=== PATIENT | female | born 1950 | race Caucasian/White ===

== ENCOUNTER 2017-01-22 09:00 | Emergency (ER) | payer OTHER ==
[2017-01-22 09:04] VITALS: BP 154/71; PULSE 61; TEMP 97.8; BMI 43.0
[2017-01-22] MEDS ORDERED: CEPHALEXIN MONOHYDRATE 500 MG CAPSULE (UD) PO ONE (10:19)
[2017-01-22] MEDS ORDERED: CEPHALEXIN MONOHYDRATE 500 MG CAPSULE (UD) ONE (10:21)
--- NOTE | 2017-01-22 10:29 | PDOC ---
History of Present Illness - General Chief Complaint: Edema Stated Complaint: LT EAR SWELLING/ INFECTION Time Seen by Provider: 01/22/17 10:14 History Source: Patient Exam Limitations: No Limitations - History of Present Illness Initial Comments: 01/22/17 10:29 66 yr female with swelling, redness to left earlobe started yesterday. pt denies pain or itching, no trauma. Past History - Past Medical History Allergies/Adverse Reactions: Allergies Allergy/AdvReac Type Severity Reaction Status Date / Time No Known Drug Allergies Allergy Verified 01/22/17 09:04 Home Medications: Ambulatory Orders Aspirin [ASA -] 81 mg PO DAILY 09/30/12 Metoprolol Succinate [Toprol XL -] 25 mg PO HS 09/30/12 Atorvastatin Ca [Lipitor] 40 mg PO HS 10/03/12 Cephalexin [Keflex] 250 mg PO QID #28 capsule 01/22/17 Mupirocin Ointment [Bactroban] 1 applic TP BID #1 tube 01/22/17 Anemia: Yes Asthma: Yes Cancer: No Cardiac Disorders: No CVA: No COPD: No CHF: No Dementia: No Diabetes: No GI Disorders: No Disorders: No HTN: Yes Hypercholesterolemia: Yes Liver Disease: No Seizures: No Thyroid Disease: No - Surgical History Abdominal Surgery: No Appendectomy: No Cardiac Surgery: No Cholecystectomy: Yes Lung Surgery: No Neurologic Surgery: No Orthopedic Surgery: No - Psycho/Social/Smoking Cessation Hx Anxiety: No Suicidal Ideation: No Smoking History: Never smoked Have you smoked in the past 12 months: No Number of Cigarettes Smoked Daily: 0 Hx Alcohol Use: No Drug/Substance Use Hx: No Substance Use Type: None Hx Substance Use Treatment: No Review of Systems - Review of Systems Able to Perform ROS?: Yes Is the patient limited Kiswahili proficient: Yes Constitutional: No: Symptoms Reported HEENTM: No: Symptoms Reported Integumentary: Yes: Symptoms Reported, See HPI *Physical Exam - Vital Signs Last Vital Signs Temp Pulse Resp BP Pulse Ox 97.8 F 61 16 154/71 96 01/22/17 09:02 01/22/17 09:02 01/22/17 09:02 01/22/17 09:02 01/22/17 09:02 - Physical Exam General Appearance: Yes: Nourished, Appropriately Dressed HEENT: positive: EOMI, ADILENE, Normal ENT Inspection, TMs Normal, Pharynx Normal Respiratory/Chest: positive: Lungs Clear, Normal Breath Sounds Cardiovascular: positive: Regular Rhythm, Regular Rate Gastrointestinal/Abdominal: positive: Normal Bowel Sounds, Soft Extremity: positive: Normal Capillary Refill, Normal Inspection, Normal Range of Motion Integumentary: positive: Normal Color, Dry, Warm, Other (left earlobe and pinna with erythema, oozing vesicular lesion, swelling, non tender, swelling post auricular node) Neurologic: positive: Fully Oriented, Alert, Normal Mood/Affect, Normal Response , Motor Strength 5/5 Medical Decision Making - Medical Decision Making 01/22/17 10:31 cc: left earlobe and villaseñor with redness, swelling and drainage non tender no itching will treat for possible early cellulitus strict follow up in 48hrs *DC/Admit/Observation/Transfer Diagnosis at time of Disposition: Cellulitis Qualifiers: Site of cellulitis: other site Qualified Code(s): L03.818 - Cellulitis of other sites - Discharge Dispostion Disposition: HOME Condition at time of disposition: Good - Prescriptions Prescriptions: Mupirocin Ointment [Bactroban] 1 applic TP BID #1 tube Cephalexin [Keflex] 250 mg PO QID #28 capsule - Patient Instructions Additional Instructions: follow up in 48hrs with or the ER for follow up visit return sooner if any fever, worsening symptoms apply the ointment twice a day take the antibiotic as prescribed no rubbing alcohol or peroxide, keep dry
== END 2017-01-22 10:41 | disposition home or self-care (01) ==
LOC: JERFT 09:00
DX: H60.12 Cellulitis of left external ear (principal); I10 Essential (primary) hypertension; E78.00 Pure hypercholesterolemia, unspecified; J45.909 Unspecified asthma, uncomplicated; D64.9 Anemia, unspecified
CPT/HCPCS: 99281-25

== ENCOUNTER 2017-09-29 10:15 | Emergency (ER) | payer OTHER ==
[2017-09-29 10:37] VITALS: TEMP 97.6; BMI 43.0
--- NOTE | 2017-09-29 10:46 | PDOC ---
History of Present Illness - General Chief Complaint: Pain Stated Complaint: Pain Time Seen by Provider: 09/29/17 10:29 History Source: Patient Exam Limitations: No Limitations - History of Present Illness Initial Comments: 09/29/17 10:37 Patient is a [67-year-old morbidly obese female, history of hypertension and high cholesterol presents with right posterior lower back pain which started yesterday. Patient denies any trauma, denies lifting anything heavy, reports the pain started while she was sitting still. Pain is worse with movement. Patient denies any nausea vomiting or diarrhea, no chest pain or shortness of breath, no fever. No history of orthopedic pain or kidney stones. Patient denies any urinary symptoms, no footdrop, no saddle anesthesia, no neurosensory deficits. ] Allergies: No known allergies Medications: [ASA, Lipitor, Toprol. ] Family History: Non-contributory Social History: Denies smoking, alcohol use, or IVDU Vital signs on arrival are [notable for pulse of 96.] Review of Systems GENERAL/CONSTITUTIONAL: [No fever or chills. No weakness. No weight change.] HEAD, EYES, EARS, NOSE AND THROAT: [No change in vision. No ear pain or discharge. No sore throat. ] CARDIOVASCULAR: [No chest pain or shortness of breath.] RESPIRATORY: [No cough, wheezing, or hemoptysis.] GASTROINTESTINAL: [No nausea, vomiting, diarrhea or constipation. No rectal bleeding.] GENITOURINARY: [No dysuria, frequency, or change in urination.] MUSCULOSKELETAL: [No joint or muscle swelling or pain. No neck pain. Right posterior back pain. ] SKIN : [No rash or easy bruising.] NEUROLOGIC: [No headache, vertigo, loss of consciousness, or loss of sensation.] PSYCHIATRIC: [No depression or anxiety.] ENDOCRINE: [No increased thirst. No abnormal weight change.] HEMATOLOGIC/LYMPHATIC: [No anemia, easy bleeding, or history of blood clots.] ALLERGIC/IMMUNOLOGIC: [No hives or skin allergy. No latex allergy.] Physical Exam: GENERAL: [The patient is awake, alert, and fully oriented, in no acute distress. ] EYES: [Pupils equal, round and reactive to light, extraocular movements intact, sclera anicteric, conjunctiva clear.] ENT: [Ears normal, nares patent, oropharynx clear without exudates. Moist mucous membranes. No uvula deviation] NECK: [Normal range of motion, supple without lymphadenopathy, JVD, or masses.] LUNGS: [Breath sounds equal, clear to auscultation bilaterally. No wheezes, and no crackles.] HEART: [Regular rate and rhythm, normal S1 and S2 without murmur, rub or gallop. ] ABDOMEN: [Soft, nontender, normoactive bowel sounds. No guarding, no rebound. No masses. No bruising or abrasions] MUSCULOSKELETAL: [Normal range of motion, no edema. No clubbing or cyanosis. No cords, erythema, or tenderness. No CVA Tenderness with fist palpation. Pelvis stable. ] RECTAL : Good rectal tone. NEUROLOGICAL: [Cranial nerves II through XII grossly intact. Normal speech, normal gait.] SKIN: [Warm, Dry, normal turgor, no rashes or lesions noted.] 09/29/17 15:28 Past History - Past Medical History Allergies/Adverse Reactions: Allergies Allergy/AdvReac Type Severity Reaction Status Date / Time No Known Drug Allergies Allergy Verified 01/22/17 09:04 Home Medications: Ambulatory Orders Aspirin [ASA -] 81 mg PO DAILY 09/30/12 Metoprolol Succinate [Toprol XL -] 25 mg PO HS 09/30/12 Atorvastatin Ca [Lipitor] 40 mg PO HS 10/03/12 Diazepam [Valium] 5 mg PO Q8H #9 tablet MDD 3 09/29/17 Tramadol HCl 50 mg PO TID #12 tablet [facility] 3 09/29/17 Anemia: Yes Asthma: Yes Cancer: No Cardiac Disorders: No CVA: No COPD: No CHF: No DVT: No Dementia: No Diabetes: No GI Disorders: No Disorders: No HTN: Yes Hypercholesterolemia: Yes Liver Disease: No Seizures: No Thyroid Disease: No - Surgical History Abdominal Surgery: No Appendectomy: No Cardiac Surgery: No Cholecystectomy: Yes Lung Surgery: No Neurologic Surgery: No Orthopedic Surgery: No - Suicide/Smoking/Psychosocial Hx Smoking History: Never smoked Have you smoked in the past 12 months: No Number of Cigarettes Smoked Daily: 0 Information on smoking cessation initiated: No Hx Alcohol Use: No Drug/Substance Use Hx: No Substance Use Type: None Hx Substance Use Treatment: No *Physical Exam - Vital Signs Last Vital Signs Temp Pulse Resp BP Pulse Ox 97.6 F 70 24 163/80 97 09/29/17 10:23 09/29/17 10:23 09/29/17 10:23 09/29/17 10:23 09/29/17 10:23 ED Treatment Course - LABORATORY CBC & Chemistry Diagram: 09/29/17 10:40 09/29/17 10:40 - RADIOLOGY Radiology Studies Ordered: Category Date Time Status CHEST PA & LAT [RAD] Stat Radiology 09/29/17 10:35 Ordered Medical Decision Making - Medical Decision Making 09/29/17 10:46 A/P: Patient with posterior right back pain, pain at rest but worse with movement. Denies any chest pain or shortness of breath, no upper respiratory symptoms. Plan: EKG Chest x-ray CBC, CMP saline lock CT scan, spinal rule out kidney stones 09/29/17 14:19 Laboratory Results - last 24 hr 09/29/17 09/29/17 09/29/17 10:40 10:40 10:45 WBC 10.7 H RBC 4.80 Hgb 12.5 Hct 39.1 MCV 81.5 MCH 26.0 MCHC 31.9 L RDW 15.5 Plt Count 219 MPV 9.4 Neutrophils % 77.7 Lymphocytes % 16.3 D Monocytes % 4.2 Eosinophils % 1.3 Basophils % 0.5 Sodium 143 Potassium 4.4 Chloride 105 Carbon Dioxide 33 H Anion Gap 5 L BUN 20 H Creatinine 0.6 Creat Clearance w eGFR > 60 Random Glucose 143 H Calcium 8.1 L Total Bilirubin 0.6 AST 21 D ALT 29 Alkaline Phosphatase 140 H Total Protein 6.3 L Albumin 3.1 L Urine Color Yellow Urine Appearance Slcloudy Urine pH 5.0 Ur Specific [place] 1.021 Urine Protein 2+ H Urine Glucose (UA) Negative Urine Ketones Negative Urine Blood Negative Urine Nitrite Negative Urine Bilirubin Negative Urine Urobilinogen Negative Urine WBC (Auto) 11 Urine RBC (Auto) 2 Ur Epithelial Cells Moderate Urine Bacteria Rare Hyaline Casts [address] scan still pending, labs with mildly elevated WBC with no shift. Saline ordered, and will give one Percocet with Zofran . 09/29/17 15:29 CT scan with bilateral parapelvic renal cysts. No acute pathology. Patient states some relief after Percocet and Zofran will discharge patient home, musculoskeletal pain, on tramadol and Valium encourage patient to stay with family members medication may cause dizziness. She verbalized understanding encouraged to follow up with PMD on Sunday. I discussed the physical exam findings, ancillary test results and final diagnoses with the patient. I answered all of the patient's questions. The patient was satisfied with the care received and felt comfortable with the discharge plan and treatment plan. The patient will call to arrange follow-up and will return to the Emergency Department with any new, persistent or worsening symptoms. 09/29/17 15:30 *DC/Admit/Observation/Transfer Diagnosis at time of Disposition: Musculoskeletal pain Back pain Qualifiers: Back pain location: low back pain Chronicity: acute Back pain laterality: right Sciatica presence: without sciatica Qualified Code(s): M54.5 - Low back pain - Discharge Dispostion Disposition: HOME Condition at time of disposition: Stable Admit: No - Prescriptions Prescriptions: Diazepam [Valium] 5 mg PO Q8H #9 tablet MDD 3 Tramadol HCl 50 mg PO TID #12 tablet MDD 3 - Referrals Referrals: Rizwana Pathak MD [Primary Care Provider] - - Patient Instructions Printed Discharge Instructions: Back Pain (Alternative Therapy), Low Back Pain Additional Instructions: 1. Please return to the emergency department with any numbness, tingling, weakness, numbness or tingling to groin or legs, or loss of bowel or bladder function. 2. Use pain medication as ordered. Please be careful, may cause dizziness. 3. Please is to followup in the office of Dr. Paintnig for evaluation within a week if no improvement. 4. Ice to lower basck, 20 min on 20 min off. 5. Refrain from lifting anything above 10 pounds, until pain resolved. - Post Discharge Activity Forms/Work/School Notes: Back to Work
[2017-09-29 10:50] LABS: BASOPHIL 0.5 % (0-2.0); EOSINOPHIL 1.3 % (0-4.5); MCHC 31.9 g/dl (32.0-36.0); MEAN CELL VOLUME 81.5 fl (80-96); MEAN PLT VOLUME 9.4 fl (7.5-11.1); NEUTROPHILS 77.7 % (42.8-82.8); PLATELET COUNT 219 K/MM3 (134-434); RDW 15.5 % (11.6-15.6); WHITE BLOOD COUNT 10.7 K/mm3 (4.0-10.0)
[2017-09-29 11:06] LABS: URINE APPEARANCE SLCLOUDY; URINE BILIRUBIN NEGATIVE (NEGATIVE); URINE BLOOD NEGATIVE (NEGATIVE); URINE COLOR YELLOW; URINE GLUCOSE (UA) NEGATIVE (NEGATIVE); URINE KETONE NEGATIVE (NEGATIVE); URINE NITRITE NEGATIVE (NEGATIVE); URINE UROBILINOGEN NEGATIVE mg/dL (0.2-1.0)
[2017-09-29 11:29] LABS: URINE PROTEIN 2+ (NEGATIVE)
[2017-09-29 11:30] LABS: URINE BACTERIA RARE /hpf (NONE SEEN); URINE HYALINE CAST 4 /lpf; URINE MUCUS RARE; URINE RBC 2 /hpf (0-3); URINE WBC 11 /hpf (3-5)
[2017-09-29 11:48] LABS: ALBUMIN 3.1 g/dl (3.4-5.0); ANION GAP 5 (8-16); BILIRUBIN,TOTAL 0.6 mg/dL (0.2-1.0); CALCIUM 8.1 mg/dL (8.5-10.1); CO2 33 mmol/L (21-32); CREATININE 0.6 mg/dL (0.55-1.02); GLUCOSE,RANDOM 143 mg/dL (74-106); SGOT/AST 21 U/L (15-37); SGPT/ALT 29 U/L (12-78); TOT PROT 6.3 g/dl (6.4-8.2)
[2017-09-29 11:49] LABS: ALK PHOS 140 U/L (45-117)
[2017-09-29] MEDS ORDERED: SODIUM CHLORIDE 0.9% 1000 ML INFUS.BAG IV ONE (13:28)
--- NOTE | 2017-09-29 13:52 | PDOC ---
*Physical Exam - Vital Signs Last Vital Signs Temp Pulse Resp BP Pulse Ox 97.6 F 70 24 163/80 97 09/29/17 10:23 09/29/17 10:23 09/29/17 10:23 09/29/17 10:23 09/29/17 10:23 ED Treatment Course - LABORATORY CBC & Chemistry Diagram: 09/29/17 10:40 09/29/17 10:40 - ADDITIONAL ORDERS Additional order review: Laboratory Results 09/29/17 09/29/17 10:45 10:40 Sodium 143 Potassium 4.4 Chloride 105 Carbon Dioxide 33 H Anion Gap 5 L BUN 20 H Creatinine 0.6 Creat Clearance w eGFR > 60 Random Glucose 143 H Calcium 8.1 L Total Bilirubin 0.6 AST 21 D ALT 29 Alkaline Phosphatase 140 H Total Protein 6.3 L Albumin 3.1 L Urine Color Yellow Urine Appearance Slcloudy Urine pH 5.0 Ur Specific [place] 1.021 Urine Protein 2+ H Urine Glucose (UA) Negative Urine Ketones Negative Urine Blood Negative Urine Nitrite Negative Urine Bilirubin Negative Urine Urobilinogen Negative Urine WBC (Auto) 11 Urine RBC (Auto) 2 Ur Epithelial Cells Moderate Urine Bacteria Rare Hyaline Casts 4 Urine Mucus Rare 09/29/17 10:40 RBC 4.80 MCV 81.5 MCHC 31.9 L RDW 15.5 MPV 9.4 Neutrophils % 77.7 Lymphocytes % 16.3 D Monocytes % 4.2 Eosinophils % 1.3 Basophils % 0.5 - Medications Given in the ED: ED Medications Discontinued Medications Generic Name Dose Route Start Last Admin Trade Name Freq PRN Reason Stop Dose Admin Sodium Chloride 1,000 ml 09/29/17 13:28 09/29/17 13:29 Normal Saline - IV 09/29/17 13:29 1,000 ml ONCE ONE Administration Medical Decision Making - Medical Decision Making 09/29/17 13:52 I reviewed the case of the mid-level practitioner and was available for consultation while in the emergency department *DC/Admit/Observation/Transfer Diagnosis at time of Disposition: Musculoskeletal pain, Back pain - Discharge Dispostion Disposition: HOME Condition at time of disposition: Stable - Prescriptions Prescriptions: Diazepam [Valium] 5 mg PO Q8H #9 tablet MDD 3 Tramadol HCl 50 mg PO TID #12 tablet MDD 3 - Referrals Referrals: Rizwana Pathak MD [Primary Care Provider] - - Patient Instructions Printed Discharge Instructions: Back Pain (Alternative Therapy), Low Back Pain Additional Instructions: 1. Please return to the emergency department with any numbness, tingling, weakness, numbness or tingling to groin or legs, or loss of bowel or bladder function. 2. Use pain medication as ordered. Please be careful, may cause dizziness. 3. Please is to followup in the office of Dr. Painting for evaluation within a week if no improvement. 4. Ice to lower basck, 20 min on 20 min off. 5. Refrain from lifting anything above 10 pounds, until pain resolved. - Post Discharge Activity Forms/Work/School Notes: Back to Work
[2017-09-29] MEDS ORDERED: ONDANSETRON *ODT* 4 MG TABLET SL ONE (14:18)
[2017-09-29 14:22] LABS: URINE LEUK ESTERASE 1+ (NEGATIVE)
[2017-09-29] MEDS ORDERED: ONDANSETRON *ODT* 4 MG TABLET ONE (14:22)
[2017-09-29 15:44] VITALS: BP 137/74; PULSE 79
--- NOTE | 2017-10-01 18:44 | EKG ---
Test Reason : Blood Pressure : / mmHG Vent. Rate : 065 BPM Atrial Rate : 065 BPM P-R Int : 190 ms QRS Dur : 102 ms QT Int : 402 ms P-R-T Axes : 040 -34 033 degrees QTc Int : 418 ms NORMAL SINUS RHYTHM LEFT AXIS DEVIATION CANNOT RULE OUT ANTERIOR INFARCT , AGE UNDETERMINED ABNORMAL ECG WHEN COMPARED WITH ECG OF 30-SEP-2012 12:42, NO SIGNIFICANT CHANGE WAS FOUND Confirmed by CAITLYN CARABALLO MD ([id number]) on 10/01/2017 6:44:19 PM Referred By: Confirmed By:CAITLYN CARABALLO MD
== END 2017-09-29 15:55 | disposition home or self-care (01) ==
LOC: JER 10:15
DX: M54.5 Low back pain (principal); I10 Essential (primary) hypertension; E78.00 Pure hypercholesterolemia, unspecified; E66.9 Obesity, unspecified; Z68.43 Body mass index [BMI] 50.0-59.9, adult
CPT/HCPCS: 36415; 71020-TC; 74177-TC; 80053; 81003; 81015; 85025; 87086; 93005; 93010; 99284-25

== ENCOUNTER 2017-10-05 10:18 | Day surgery (SDC) | payer OTHER ==
[2017-10-04 13:03] VITALS: BMI 43.7
[2017-10-05] MEDS ORDERED: LIDOCAINE HCL/PF 2% SDV 5ML VIAL ONE (10:34)
[2017-10-05] MEDS ORDERED: PROPOFOL 20 ML ONE ×2 (10:35)
[2017-10-05 11:51] VITALS: TEMP 98.3
[2017-10-05 13:01] VITALS: BP 135/61; PULSE 59
--- NOTE | 2017-10-08 11:23 | PATH ---
Surgical Pathology Report Patient Name: MAKAYLA BOB [facility]. Rec. #: [id number] /Age/Gender: 1950 (Age: 67) / F Account: [id number] Location: [facility]-ENDOSCOPY Taken: 10/05/2017 Received: 10/05/2017 Reported: 10/08/2017 Physicians: Emma Oglesby M.D. Specimen(s) Received A: BX SECOND PORTION DUODENUM B: BX ANTRUM C: MID TRANSVERSE COLON POLYPS D: BX POLYP CECUM E: PROXIMAL RIGHT COLON POLYP Clinical History Preoperative diagnosis: Dyspepsia, rule out ulcer, colon polyps surveillance Postoperative diagnosis: Erosive gastritis, colon polyps Final Diagnosis A. DUODENUM, SECOND PORTION AND BULB, BIOPSY: DUODENAL MUCOSA WITH NO PATHOLOGIC CHANGES. NO HISTOLOGIC EVIDENCE OF GLUTEN SENSITIVE ENTEROPATHY (CELIAC SPRUE) IDENTIFIED. B. STOMACH, ANTRUM, BIOPSY: GASTRIC ANTRAL MUCOSA WITH MILD REACTIVE GASTROPATHY AND MILD CHRONIC GASTRITIS, AND GASTRIC FUNDIC MUCOSA WITH MILD CHRONIC GASTRITIS. IMMUNOSTAIN FOR H. PYLORI IS NEGATIVE. C. COLON, MID TRANSVERSE, BIOPSY: COLONIC MUCOSA WITH PROMINENT SUBMUCOSAL LYMPHOID AGGREGATE. NO ADENOMATOUS OR HYPERPLASTIC CHANGES IDENTIFIED. D. COLON, CECUM, BIOPSY: COLONIC MUCOSA WITH NO PATHOLOGIC CHANGES. NO ADENOMATOUS OR HYPERPLASTIC CHANGES IDENTIFIED. E. COLON, PROXIMAL RIGHT, BIOPSY: SUBMUCOSAL LIPOMA. Electronically Signed Fuad Mixon M.D. Gross Description A. Received in formalin, labeled "biopsy second portion of duodenum and bulb" are 3 kraft, irregular portions of soft tissue ranging from 0.3-0.5 cm. in greatest dimension. The specimens are submitted in toto in one cassette. B. Received in formalin, labeled "antrum" are 4 kraft, irregular portions of soft tissue ranging from 0.2-0.6 cm. in greatest dimension. The specimens are submitted in toto in one cassette. C. Received in formalin, labeled "mid transverse colon polyps" are 5 kraft, irregular portions of soft tissue ranging from 0.2-0.4 cm. in greatest dimension. The specimens are submitted in toto in one cassette. D. Received in formalin, labeled "biopsy polyp cecum" is a kraft, irregular portion of soft tissue measuring 0.2 cm. in greatest dimension. The specimen is submitted in toto in one cassette. E. Received in formalin labeled "proximal right colon polyp," is a 0.7 x 0.6 x 0.3 cm kraft, polypoid portion of soft tissue. The base is inked blue and the specimen is bisected. The specimen is entirely submitted in one cassette. 10/05/201710/05/2017
== END 2017-10-05 13:02 | disposition home or self-care (01) ==
LOC: JASU-ENDO 10:18
PROVIDERS: ATTEND Internal Medicine Gastroenterology
PROC: 0DBL8ZX Excision of Transverse Colon, Via Natural or Artificial Opening Endoscopic, Diagnostic (ICD-10-PCS; 2017-10-05)
PROC: 0DBE8ZX Excision of Large Intestine, Via Natural or Artificial Opening Endoscopic, Diagnostic (ICD-10-PCS; 2017-10-05)
PROC: 0DB68ZX Excision of Stomach, Via Natural or Artificial Opening Endoscopic, Diagnostic (ICD-10-PCS; 2017-10-05)
PROC: 0DBK8ZX Excision of Ascending Colon, Via Natural or Artificial Opening Endoscopic, Diagnostic (ICD-10-PCS; principal; 2017-10-05 11:00)
DX: Z86.010 Personal history of colon polyps (principal); D12.2 Benign neoplasm of ascending colon; D12.3 Benign neoplasm of transverse colon; K63.5 Polyp of colon; K25.9 Gastric ulcer, unspecified as acute or chronic, without hemorrhage or perforation
CPT/HCPCS: 88305-TC; 88342-TC

== ENCOUNTER 2021-09-14 17:26 | Emergency (ER) | payer OTHER ==
[2021-09-14 17:55] VITALS: BP 178/71; PULSE 69; TEMP 97.6; BMI 43.9
[2021-09-14] MEDS ORDERED: DIPHTH,PERTUSS(ACELL),TET 0.5 ML DISP.SYRIN IM ONE ×2 (18:37→18:38)
== END 2021-09-14 19:48 | disposition home or self-care (01) ==
LOC: JERFT 17:26
PROC: 0HQKXZZ Repair Right Lower Leg Skin, External Approach (ICD-10-PCS; principal; 2021-09-14)
PROC: 3E0234Z Introduction of Serum, Toxoid and Vaccine into Muscle, Percutaneous Approach (ICD-10-PCS; 2021-09-14)
DX: S81.811A Laceration without foreign body, right lower leg, initial encounter (principal); W22.8XXA Striking against or struck by other objects, initial encounter
CPT/HCPCS: 12001-25; 90471; 90715; 99282-25

== ENCOUNTER 2021-09-26 12:51 | Emergency (ER) | payer OTHER ==
[2021-09-26 13:35] VITALS: BP 179/73; PULSE 59; TEMP 97.9; BMI 44.9
== END 2021-09-26 14:36 | disposition home or self-care (01) ==
LOC: JERFT 12:51
DX: Z48.02 Encounter for removal of sutures (principal)
CPT/HCPCS: 99281-25

== ENCOUNTER → 2022-02-27 | Day surgery (SDC) | payer OTHER | END | disposition home or self-care (01) | LOC: JRADIR 10:22 | PROVIDERS: ATTEND Internal Medicine | PROC: 0G9K3ZX Drainage of Thyroid Gland, Percutaneous Approach, Diagnostic (ICD-10-PCS; principal; 2022-02-27) | DX: E04.1 Nontoxic single thyroid nodule (principal) | CPT/HCPCS: 10005; 76942; 88173; 88305-TC ==

== ENCOUNTER → 2025-06-23 | Day surgery (SDC) | payer OTHER | END | disposition home or self-care (01) | LOC: JRADIR 10:12 | PROVIDERS: ATTEND Internal Medicine | PROC: 0GBJ3ZX Excision of Thyroid Gland Isthmus, Percutaneous Approach, Diagnostic (ICD-10-PCS; principal; 2025-06-23) | DX: E04.1 Nontoxic single thyroid nodule (principal) | CPT/HCPCS: 10005; 76942; 88173; 88305-TC ==